=== PATIENT | male | born 1970 | race Two or more races ===

== ENCOUNTER 2016-07-20 10:29 | Emergency (ER) | payer SELFPAY ==
[~2016-07-20] VITALS: Ht 162.6 cm; Wt 63.5 kg
[2016-07-20] MEDS ORDERED: [UNRECOGNIZED DRUG - REMARK] (10:53)
--- NOTE | 2016-07-20 10:58 | NUR ---
pt is in room #1b. dr whitaker evaluated the pt.
[2016-07-20 11:28] LABS: BASOPHILS # (AUTO) 0.1 K/uL (0.0-8.0); BASOPHILS % (AUTO) 2.1 % (0.0-2.0); EOSINOPHILS # (AUTO) 0.1 K/uL (0.0-0.7); EOSINOPHILS % (AUTO) 2.5 % (0.0-7.0); HEMATOCRIT 40.8 % (40-50); HEMOGLOBIN 13.6 G/DL (14.0-18.0); LYMPHOCYTES # (AUTO) 0.8 K/UL (0.8-4.8); LYMPHOCYTES % (AUTO) 19.4 % (20.5-51.5); MEAN CORPUSCULAR HEMOGLOBIN 30.4 UUG (27.0-31.0); MEAN CORPUSCULAR HGB CONC 33 g/dL (32.0-37.0); MEAN CORPUSCULAR VOLUME 91.5 FL (82.0-92.0); MONOCYTES # (AUTO) 0.4 K/UL (0.1-1.30); MONOCYTES % (AUTO) 9.8 % (0.0-11.0); NEUTROPHILS # (AUTO) 2.7 K/UL (1.8-8.9); NEUTROPHILS % (AUTO) 66.2 % (38.5-71.5); PLATELET COUNT (AUTO) 238 K/UL (150-450); RED BLOOD CELL COUNT(AUTO) 4.46 MIL/UL (4.7-6.1); WHITE BLOOD COUNT (AUTO) 4.1 K/UL (4.0-11.2)
[2016-07-20 11:38] LABS: CARBON DIOXIDE 28 mmol/L (21-32); CHLORIDE 106 mmol/L (98-107); CREATININE 0.8 mg/dL (0.6-1.3); GLUCOSE 79 mg/dL (74-106); POTASSIUM 3.6 mmol/L (3.5-5.1); UREA NITROGEN, BLOOD 12 mg/dL (7-18)
[2016-07-20 11:44] LABS: ACETAMINOPHEN < 2.0 ug/mL (10-30); ALANINE AMINOTRANSFERASE 35 U/L (16-63); ALKALINE PHOSPHATASE 144 U/L (50-136); ASPARTATE AMINOTRANSFERASE 39 U/L (15-37); BILIRUBIN,DIRECT 0.2 mg/dL (0.0-0.2); BILIRUBIN,TOTAL 0.5 mg/dL (0.2-1.0); TOTAL PROTEIN, SERUM 7.7 g/dL (6.4-8.2)
[2016-07-20 11:47] LABS: ETHANOL < 3 MG/DL (0-0)
[2016-07-20 13:18] LABS: *BILIRUBIN,URIN NEGATIVE (NEGATIVE); *BLOOD, URINE NEGATIVE (NEGATIVE); *CLARITY,URINE CLEAR (CLEAR); *COLOR,URINE DARK YELLOW (YELLOW); *KETONES,URINE TRACE (NEGATIVE); *PROTEIN,URINE TRACE (NEGATIVE); *UROBILINOGEN,URINE 0.2 E.U./dl (NORMAL); LEUKOCYTE ESTERASE ,URINE NEGATIVE (NEGATIVE); NITRITE, URINE NEGATIVE (NEGATIVE); PH,URINE 5.5 (5.0-8.0); UGLUCOSE NEGATIVE (NEGATIVE)
[2016-07-20 13:34] LABS: RBC,URINE NONE SEEN /HPF (0-3)
[2016-07-20 13:35] LABS: BACTERIA,URINE NONE SEEN /HPF (NONE SEEN); SQUAMOUS EPITHELIAL CELL,UR FEW /HPF (NONE SEEN); WBC,URINE 0-3 /HPF (0-3)
[2016-07-20 13:38] LABS: *AMPHETAMINE, URINE POSITIVE (NEGATIVE); *BARBITURATE, URINE NEGATIVE (NEGATIVE); *CANNABINOID, URINE POSITIVE (NEGATIVE); *COCCAINE, URINE NEGATIVE (NEGATIVE); *OPIATE, URINE NEGATIVE (NEGATIVE); *PHENCYCLIDINE SCREEN,URINE NEGATIVE (NEGATIVE)
--- NOTE | 2016-07-20 14:04 | NUR ---
MIRZA WYLIE WAS CALLED TO EVALUATED THE PT ACCORDING TO ER MD REQUEST.
--- NOTE | 2016-07-20 15:31 | NUR ---
PT WAS EVALUATED BY MIRZA WYLIE. PT WAS D/C TO HOME. D/C INSTRUCTIONS GIVEN SANDRA THE PT.
[2016-07-20 15:32] VITALS: BP 139/78
== END 2016-07-20 15:33 | disposition home or self-care (01) ==
LOC: ER 10:29
DX: F43.0 Acute stress reaction (principal); Z88.1 Allergy status to other antibiotic agents; F31.9 Bipolar disorder, unspecified
CPT/HCPCS: 36415; 70450; 71010; 72100; 73030; 80048; 80076; 80307; 81001; 82140; 83605; 84443; 84484; 85025; 85730; 87040 ×2; 87086; 99285; A4663; G0480 ×2; G0481; 70030-TC

== ENCOUNTER 2017-09-02 14:10 | Emergency (ER) | payer SELFPAY ==
[~2017-09-02] VITALS: Ht 149.9 cm; Wt 38.6 kg
[~2017-09-02 14:10] MED LIST: [UNRECOGNIZED DRUG - REMARK]
[2017-09-02] MEDS ORDERED: IV NORMAL SALINE 1000 ML BAG IV ONE (14:15)
[2017-09-02] MEDS ORDERED: diphenhydrAMINE 50 MG/1 ML VIAL IM ONE (14:15)
[2017-09-02] MEDS ORDERED: HALOPERIDOL LACTATE 5 MG/1 ML VIAL IM ONE (14:15)
[2017-09-02] MEDS ORDERED: LORAZEPAM 2 MG/1 ML VIAL IM ONE (14:15)
[2017-09-02] MEDS ORDERED: diphenhydrAMINE 50 MG/1 ML VIAL ONE (14:18)
[2017-09-02] MEDS ORDERED: HALOPERIDOL LACTATE 5 MG/1 ML VIAL ONE (14:18)
[2017-09-02] MEDS ORDERED: LORAZEPAM 2 MG/1 ML VIAL ONE ×2 (14:19→14:36)
[2017-09-02 14:33] LABS: BASOPHILS % (AUTO) 0.5 % (0.0-2.0); EOSINOPHILS % (AUTO) 0.4 % (0.0-7.0); HEMATOCRIT 40.7 % (36.7-47.1); HEMOGLOBIN 13.7 g/dL (12.5-16.3); LYMPHOCYTES # (AUTO) 1.2 K/uL (20.0-40.0); LYMPHOCYTES % (AUTO) 16.4 % (20.5-51.5); MEAN CORPUSCULAR HEMOGLOBIN 31.8 uug (23.8-33.4); MEAN CORPUSCULAR HGB CONC 34 g/dL (32.5-36.3); MEAN CORPUSCULAR VOLUME 94.4 fL (73.0-96.2); MONOCYTES # (AUTO) 0.5 K/uL (2.0-10.0); MONOCYTES % (AUTO) 7.2 % (0.0-11.0); NEUTROPHILS # (AUTO) 5.7 K/uL (1.8-8.9); NEUTROPHILS % (AUTO) 75.5 % (38.5-71.5); PLATELET COUNT (AUTO) 297 K/uL (152-348); RED BLOOD CELL COUNT(AUTO) 4.31 MIL/uL (4.06-5.63); WHITE BLOOD COUNT (AUTO) 7.6 K/uL (3.6-10.2)
[2017-09-02] MEDS ORDERED: LORAZEPAM 2 MG/1 ML VIAL IV ONE (14:45)
[2017-09-02 14:50] LABS: CARBON DIOXIDE 23 mmol/L (21-32); CHLORIDE 109 mmol/L (98-107); CREATININE 0.9 mg/dL (0.6-1.3); GLUCOSE 93 mg/dL (74-106); POTASSIUM 3.4 mmol/L (3.5-5.1); UREA NITROGEN, BLOOD 22 mg/dL (7-18)
[2017-09-02 14:56] LABS: ALANINE AMINOTRANSFERASE 91 U/L (16-63); ALKALINE PHOSPHATASE 147 U/L (50-136); ASPARTATE AMINOTRANSFERASE 96 U/L (15-37); BILIRUBIN,DIRECT 0.1 mg/dL (0.0-0.2); BILIRUBIN,TOTAL 0.5 mg/dL (0.2-1.0); TOTAL PROTEIN, SERUM 8.4 g/dL (6.4-8.2)
[2017-09-02 14:57] LABS: ETHANOL 192 MG/DL (0-0)
[2017-09-02 15:00] LABS: ACETAMINOPHEN < 2.0 ug/mL (10-30)
--- NOTE | 2017-09-02 15:04 | NUR ---
MEDS ADMINISTERESD, PT SLEEPING W/O DISTRESS, POSITIONED FOR COMFORT. 1L 0.9 NS INFUSED, MONITOR SHOWS NST, PO2=96% ON RO[place], [employer] NOT PRESENT NOW. URINE AND LAbs drawn
[2017-09-02 15:36] LABS: *BILIRUBIN,URIN NEGATIVE (NEGATIVE); *BLOOD, URINE NEGATIVE (NEGATIVE); *CLARITY,URINE SLIGHTLY CLOUDY (CLEAR); *COLOR,URINE YELLOW (YELLOW); *KETONES,URINE NEGATIVE (NEGATIVE); *PROTEIN,URINE NEGATIVE (NEGATIVE); *UROBILINOGEN,URINE 0.2 E.U./dl (NORMAL); LEUKOCYTE ESTERASE ,URINE NEGATIVE (NEGATIVE); NITRITE, URINE NEGATIVE (NEGATIVE); PH,URINE 5.5 (5.0-8.0); UGLUCOSE NEGATIVE (NEGATIVE)
[2017-09-02 15:37] LABS: BACTERIA,URINE NONE SEEN /HPF (NONE SEEN); RBC,URINE 0-3 /HPF (0-3); SQUAMOUS EPITHELIAL CELL,UR FEW /HPF (NONE SEEN); WBC,URINE 0-3 /HPF (0-3)
[2017-09-02 15:41] LABS: *AMPHETAMINE, URINE POSITIVE (NEGATIVE); *BARBITURATE, URINE NEGATIVE (NEGATIVE); *CANNABINOID, URINE POSITIVE (NEGATIVE); *COCCAINE, URINE NEGATIVE (NEGATIVE)
[2017-09-02 15:42] LABS: *OPIATE, URINE NEGATIVE (NEGATIVE); *PHENCYCLIDINE SCREEN,URINE NEGATIVE (NEGATIVE)
--- NOTE | 2017-09-02 18:20 | NUR ---
PT SLEEPING, RESPODS TO PAIN ONLY. MONITOR SHOWS NSR, PO2=96% ON ROOMAIR
--- NOTE | 2017-09-02 19:01 | NUR ---
PT SLEEPING, NO DISTRESS NOTED, SBAR REPORT TO PM SHIFT.
--- NOTE | 2017-09-02 21:30 | NUR ---
PT STILL SLEEPING IN BED. NAD NOTED.
--- NOTE | 2017-09-03 01:45 | NUR ---
PT SLEEPING IN BED. NO ACUTE DISTRESS NOTED.
--- NOTE | 2017-09-03 06:50 | NUR ---
IV removed. Catheter intact and site benign. Pressure and 4x4 gauze applied to site. No bleeding noted.
--- NOTE | 2017-09-03 06:53 | NUR ---
Patient discharged to home in stable conditon. Written and verbal after care instructions given. Patient verbalizes understanding of instructions. Pt left ER in steady gait. All belongings with patient. No acute distress noted. Pt [id number].
[2017-09-03 06:56] VITALS: BP 131/71
== END 2017-09-03 06:57 | disposition home or self-care (01) ==
LOC: EDBD → MERGE 14:10 → ER 14:10
DX: F19.10 Other psychoactive substance abuse, uncomplicated (principal); Z59.0 Homelessness
CPT/HCPCS: 36415; 80307; 80324; 80349; 85025; A4663; C1758; G0480; G0480-TC; J1200; J1630; J2060; J7030